=== PATIENT | male | born 1960 | race Caucasian/White ===

== ENCOUNTER → 2019-03-02 | Outpatient (CLI) | payer BC ==
[~2019-03-02] MED LIST: ATORVASTATIN CA40 M1 PO; CYCLOBENZAPRINE10 MG PO; CYCLOBENZAPRINE5 M3 PO; HUMALOG100 UNIT/1 SQ; LANTUS SOL100 UNIT/1 SC; LOSARTAN POTAS100 M1 PO; MAGNESIUM250 M1 PO; METFORMIN HYD1000 MG PO; OMEPRAZOLE40 MG PO; Percocet 325 MG1 TAB PO
== END | disposition home or self-care (01) ==
LOC: MRI 13:00
DX: M51.36 Other intervertebral disc degeneration, lumbar region (principal); M47.817 Spondylosis without myelopathy or radiculopathy, lumbosacral region

== ENCOUNTER 2019-03-03 10:55 | Emergency (ER) | payer BC ==
[~2019-03-03] VITALS: Ht 182.8 cm; Wt 104.3 kg
[~2019-03-03 10:55] MED LIST changes: -ATORVASTATIN CA40 M1 PO; -CYCLOBENZAPRINE10 MG PO; -HUMALOG100 UNIT/1 SQ; -LANTUS SOL100 UNIT/1 SC; -LOSARTAN POTAS100 M1 PO; -MAGNESIUM250 M1 PO; -METFORMIN HYD1000 MG PO; -OMEPRAZOLE40 MG PO; -Percocet 325 MG1 TAB PO
[2019-03-03 11:36] LABS: BASO # 0.1 10*3/uL (0.0-0.1); BASO % 0.3 % (0.0-1.0); EOS # 0.1 10*3/uL (0.0-0.4); EOS % 0.7 % (1.0-4.0); HEMATOCRIT 40.6 % (42.0-52.0); HEMOGLOBIN 13.6 g/dl (14.0-18.0); LYMPH # 3.6 10*3/uL (1.3-4.4); LYMPH % 21.6 % (27.0-41.0); MEAN CORPUSCULAR HGB 30.5 pg (27.0-31.0); MEAN CORPUSCULAR HGB CONC 33.5 g/dl (33.0-37.0); MONO # 1.2 10*3/uL (0.1-1.0); MONO % 7.2 % (3.0-9.0); NEUT # 11.6 10*3/uL (2.3-7.9); NEUT % 69.5 % (47.0-73.0); PLATELET COUNT AUTOMATED 210 10*3/uL (130-400); RED BLOOD COUNT 4.46 10*6/uL (4.50-5.90); RED CELL DISTRI WIDTH 13.1 % (0-14.5); WHITE BLOOD COUNT 16.7 10*3/uL (4.8-10.8)
[2019-03-03 11:56] LABS: ALBUMIN 3.6 gm/dl (3.1-4.5); ALKALINE PHOSPHATASE 65 U/L (45-117); BUN 20 mg/dl (7-24); CHLORIDE 96 mmol/L (98-107); CREATININE 1.07 mg/dL (0.70-1.30); POTASSIUM 4.4 mmol/L (3.5-5.1); SGOT/AST 16 IU/L (3-35); SGPT/ALT 45 U/L (12-78); SODIUM 134 mmol/L (136-145); TOTAL PROTEIN 7.1 gm/dL (6.4-8.2)
== END 2019-03-03 12:30 | disposition short-term general hospital (02) ==
LOC: ED 10:55
PROVIDERS: Physician Assistant
DX: I62.9 Nontraumatic intracranial hemorrhage, unspecified (principal)

== ENCOUNTER 2019-03-20 18:36 | Inpatient (IN) | payer BC ==
[~2019-03-20] VITALS: Ht 182.8 cm; Wt 99.4 kg
--- NOTE | ~2019-03-20 | EKG ---
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
--- NOTE | ~2019-03-20 | EKG ---
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
--- NOTE | ~2019-03-20 | EKG ---
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
[2019-03-20 18:37] VITALS: BP 134/93
[2019-03-20 18:55] LABS: BASO # 0.1 10*3/uL (0.0-0.1); BASO % 0.5 % (0.0-1.0); EOS # 0.5 10*3/uL (0.0-0.4); EOS % 3.8 % (1.0-4.0); HEMATOCRIT 37.3 % (42.0-52.0); HEMOGLOBIN 12.2 g/dl (14.0-18.0); LYMPH # 3.1 10*3/uL (1.3-4.4); LYMPH % 26.2 % (27.0-41.0); MEAN CELL VOLUME 90.5 fl (80.0-94.0); MEAN CORPUSCULAR HGB 29.6 pg (27.0-31.0); MEAN CORPUSCULAR HGB CONC 32.7 g/dl (33.0-37.0); MEAN PLATELET VOLUME 10.8 fl (9.6-12.3); MONO # 0.8 10*3/uL (0.1-1.0); MONO % 6.8 % (3.0-9.0); NEUT # 7.3 10*3/uL (2.3-7.9); NEUT % 62.3 % (47.0-73.0); PLATELET COUNT AUTOMATED 212 10*3/uL (130-400); RED BLOOD COUNT 4.12 10*6/uL (4.50-5.90); RED CELL DISTRI WIDTH 12.5 % (0-14.5); WHITE BLOOD COUNT 11.8 10*3/uL (4.8-10.8)
[2019-03-20 19:07] LABS: ACT PARTIAL THROMBO TIME 24.6 SECONDS (20.0-32.1); INTERNATIONAL NORM RATIO 1.1 (2.0-3.5)
[2019-03-20 19:11] LABS: ALBUMIN 3.3 gm/dl (3.1-4.5); ALKALINE PHOSPHATASE 73 U/L (45-117); BUN 15 mg/dl (7-24); CHLORIDE 102 mmol/L (98-107); CREATININE 1.04 mg/dL (0.70-1.30); POTASSIUM 3.7 mmol/L (3.5-5.1); SGOT/AST 17 IU/L (3-35); SGPT/ALT 29 U/L (12-78); SODIUM 136 mmol/L (136-145); TOTAL PROTEIN 7.1 gm/dL (6.4-8.2)
[2019-03-20 19:13] LABS: TROPONIN I < 0.015 ng/ml (<0.045)
[2019-03-20] MEDS ORDERED: LOSARTAN POTAS100 M1 PO (22:52)
[2019-03-20] MEDS ORDERED: HUMALOG100 UNIT/1 SQ (22:53)
[2019-03-20] MEDS ORDERED: Percocet 325 MG1 TAB PO (22:53)
[2019-03-20] MEDS ORDERED: METFORMIN HYD1000 MG PO (22:54)
[2019-03-20] MEDS ORDERED: ATORVASTATIN CA40 M1 PO (22:54)
[2019-03-20] MEDS ORDERED: CYCLOBENZAPRINE10 MG PO (22:54)
[2019-03-20] MEDS ORDERED: OMEPRAZOLE40 MG PO (22:55)
[2019-03-20] MEDS ORDERED: MAGNESIUM250 M1 PO (22:55)
[2019-03-20] MEDS ORDERED: LANTUS SOL100 UNIT/1 SC (22:55)
[2019-03-21] VITALS: BP 145/73
[2019-03-21 01:14] LABS: TROPONIN I < 0.015 ng/ml (<0.045)
[2019-03-21 06:45] LABS: BASO # 0.1 10*3/uL (0.0-0.1); BASO % 0.7 % (0.0-1.0); EOS # 0.4 10*3/uL (0.0-0.4); EOS % 4.4 % (1.0-4.0); HEMATOCRIT 37.5 % (42.0-52.0); HEMOGLOBIN 12.2 g/dl (14.0-18.0); LYMPH # 2.4 10*3/uL (1.3-4.4); LYMPH % 26.6 % (27.0-41.0); MEAN CELL VOLUME 91.2 fl (80.0-94.0); MEAN CORPUSCULAR HGB 29.7 pg (27.0-31.0); MEAN CORPUSCULAR HGB CONC 32.5 g/dl (33.0-37.0); MEAN PLATELET VOLUME 11.1 fl (9.6-12.3); MONO # 0.7 10*3/uL (0.1-1.0); MONO % 8.2 % (3.0-9.0); NEUT # 5.4 10*3/uL (2.3-7.9); NEUT % 59.8 % (47.0-73.0); PLATELET COUNT AUTOMATED 198 10*3/uL (130-400); RED BLOOD COUNT 4.11 10*6/uL (4.50-5.90); RED CELL DISTRI WIDTH 12.4 % (0-14.5)
[2019-03-21 07:13] LABS: BUN 11 mg/dl (7-24); CHLORIDE 101 mmol/L (98-107); FREE T4 0.97 ng/dl (0.76-1.46); PHOSPHOROUS 3.8 mg/dL (2.5-4.9); POTASSIUM 3.7 mmol/L (3.5-5.1); SODIUM 137 mmol/L (136-145)
== END 2019-03-21 07:49 | disposition left against medical advice (07) | DRG 641 ==
LOC: ED 18:36 → EDHOLD 21:40 → 4E 21:48
PROVIDERS: Emergency Medicine; Family Medicine; ADMIT Emergency Medicine
DX: E83.42 Hypomagnesemia (principal); R65.10 Systemic inflammatory response syndrome (SIRS) of non-infectious origin without acute organ dysfunction; D64.9 Anemia, unspecified; E78.49 Other hyperlipidemia; M54.10 Radiculopathy, site unspecified; Z53.21 Procedure and treatment not carried out due to patient leaving prior to being seen by health care provider; G47.33 Obstructive sleep apnea (adult) (pediatric); M54.30 Sciatica, unspecified side; I10 Essential (primary) hypertension; K21.9 Gastro-esophageal reflux disease without esophagitis; D72.1 Eosinophilia; E11.65 Type 2 diabetes mellitus with hyperglycemia; T47.1X5A Adverse effect of other antacids and anti-gastric-secretion drugs, initial encounter; Y92.89 Other specified places as the place of occurrence of the external cause; Z79.4 Long term (current) use of insulin; Z86.73 Personal history of transient ischemic attack (TIA), and cerebral infarction without residual deficits; Z82.0 Family history of epilepsy and other diseases of the nervous system; Z80.8 Family history of malignant neoplasm of other organs or systems; Z79.899 Other long term (current) drug therapy

== ENCOUNTER → 2019-09-24 | Outpatient (CLI) | payer BC ==
[~2019-09-24] MED LIST changes: +ATORVASTATIN CA40 M1 PO; +CYCLOBENZAPRINE10 MG PO; +HUMALOG100 UNIT/1 SQ; +LANTUS SOL100 UNIT/1 SC; +LOSARTAN POTAS100 M1 PO; +MAGNESIUM250 M1 PO; +METFORMIN HYD1000 MG PO; +OMEPRAZOLE40 MG PO; +Percocet 325 MG1 TAB PO
[2019-09-24 09:43] LABS: CREATININE 1.02 mg/dL (0.70-1.30)
== END | disposition home or self-care (01) ==
LOC: MRI 09:00 → LAB 09:05 → MRI 09:05
PROVIDERS: Radiology Diagnostic Radiology
DX: I67.82 Cerebral ischemia (principal); J32.3 Chronic sphenoidal sinusitis; I10 Essential (primary) hypertension; E11.9 Type 2 diabetes mellitus without complications

== ENCOUNTER 2020-01-15 20:50 | Emergency (ER) | payer BC ==
[~2020-01-15] VITALS: Ht 182.8 cm; Wt 99.8 kg
[2020-01-15 21:46] LABS: BASO # 0.1 10*3/uL (0.0-0.1); BASO % 0.6 % (0.0-1.0); EOS # 0.4 10*3/uL (0.0-0.4); EOS % 4.2 % (1.0-4.0); HEMATOCRIT 39.1 % (42.0-52.0); LYMPH # 3.1 10*3/uL (1.3-4.4); LYMPH % 29.7 % (27.0-41.0); MEAN CELL VOLUME 91.8 fl (80.0-94.0); MEAN CORPUSCULAR HGB CONC 32.7 g/dl (33.0-37.0); MEAN PLATELET VOLUME 11.4 fl (9.6-12.3); MONO # 0.7 10*3/uL (0.1-1.0); MONO % 7.2 % (3.0-9.0); NEUT % 58.1 % (47.0-73.0); PLATELET COUNT AUTOMATED 213 10*3/uL (130-400); RED BLOOD COUNT 4.26 10*6/uL (4.50-5.90); RED CELL DISTRI WIDTH 13.6 % (0-14.5); WHITE BLOOD COUNT 10.3 10*3/uL (4.8-10.8)
[2020-01-15 21:54] LABS: ACT PARTIAL THROMBO TIME 22.9 SECONDS (20.0-32.1); INTERNATIONAL NORM RATIO 1.2 (2.0-3.5)
[2020-01-15 22:02] LABS: ALBUMIN 3.5 gm/dl (3.1-4.5); ALKALINE PHOSPHATASE 87 U/L (45-117); BUN 19 mg/dl (7-24); CHLORIDE 108 mmol/L (98-107); CREATININE 1.02 mg/dL (0.70-1.30); LIPASE 169 U/L (73-393); SGOT/AST 22 IU/L (3-35); SGPT/ALT 51 U/L (12-78); SODIUM 141 mmol/L (136-145); TOTAL PROTEIN 6.9 gm/dL (6.4-8.2)
[2020-01-15 22:03] LABS: TROPONIN I < 0.015 ng/ml (<0.045)
[2020-01-16] MEDS ORDERED: KEPPRA1000 MG PO (00:19)
== END 2020-01-16 00:55 | disposition left against medical advice (07) ==
LOC: ED 20:50
PROVIDERS: Emergency Medicine Emergency Medical Services
DX: R56.9 Unspecified convulsions (principal); E83.42 Hypomagnesemia; K21.9 Gastro-esophageal reflux disease without esophagitis; E78.5 Hyperlipidemia, unspecified; E11.9 Type 2 diabetes mellitus without complications; I10 Essential (primary) hypertension; Z79.899 Other long term (current) drug therapy

== ENCOUNTER 2020-07-31 04:16 | Emergency (ER) | payer BC ==
[~2020-07-31] VITALS: Ht 182.8 cm; Wt 61.2 kg
[~2020-07-31 04:16] MED LIST changes: +KEPPRA1000 MG PO
[2020-07-31] MEDS ORDERED: AMOXICILLIN500 M2 PO (05:05)
== END 2020-07-31 05:32 | disposition home or self-care (01) ==
LOC: ED 04:16
DX: K04.7 Periapical abscess without sinus (principal); I10 Essential (primary) hypertension; K21.9 Gastro-esophageal reflux disease without esophagitis; E11.9 Type 2 diabetes mellitus without complications; E78.5 Hyperlipidemia, unspecified; Z79.4 Long term (current) use of insulin; Z79.899 Other long term (current) drug therapy; Z86.73 Personal history of transient ischemic attack (TIA), and cerebral infarction without residual deficits

== ENCOUNTER → 2021-08-24 | Outpatient (CLI) | payer MEDICARE ==
[~2021-08-24] MED LIST changes: +AMOXICILLIN500 M2 PO
== END | disposition home or self-care (01) ==
LOC: COVID19 16:10
PROVIDERS: ATTEND Internal Medicine
DX: Z11.52 Encounter for screening for COVID-19 (principal)